=== PATIENT | male | born 1970 | race American Indian/Alaskan Native ===

== ENCOUNTER 2022-07-01 20:38 | Emergency (ER) | payer OTHER, SELFPAY ==
--- NOTE | ~2022-07-01 | CT_ITS ---
EXAMINATION: CT abdomen pelvis wo con DATE: 07/01/2022 21:24 INDICATION: Kidney stones. TECHNIQUE: Computed tomography (CT) of the abdomen and pelvis was performed without intravenous contr ast. The dose-length product was 303.10 mGy-cm. Automated exposure control and iterative reconstructi on technique were employed. COMPARISON: CT dated 05/15/2015 FINDINGS: Heart size normal. No significant abnormality of the lung bases. No pneumothorax. No signif icant pleural or pericardial effusion. There is moderate debris in the stomach. No significant vascul ar abnormality. No lymphadenopathy. Normal appendix. There is a proximal right ureteral stone measuri ng 5 mm. There is mild right hydronephrosis. There is a 2 mm nonobstructing right renal stone. Bladde r is unremarkable. No left renal or ureteral stone. No free air or free fluid. Nonobstructive bowel p attern.There is a second bone island located in the left ischio, unchanged. Nephrolithiasis. IMPRESSION: 1. Proximal right ureteral stone measuring 5 mm located at the L3 level with mild hydronephrosis. 2: Right there is a stable sclerotic lesion of the left ilium, consistent with a bone island. Reviewed, dictated and finalized at location A. [employer] IMPRESSION: 1. Proximal right ureteral stone measuring 5 mm located at the L3 level with mi ld hydronephrosis. 2: Right there is a stable sclerotic lesion of the left ilium, consistent with a bone island.
[2022-07-01 21:08] VITALS: BP 136/88; PULSE 72; RESP 16; TEMP 37; O2SAT 100
[2022-07-01 21:53] LABS: Appearance Urine Clear (Clear); Bilirubin Urine Negative (Negative); Blood Urine Trace-intact (Negative); Color Urine Yellow (Yellow); Glucose Urine UA Negative (Negative); Ketones Urine Negative (Negative); Leukocyte Esterase Ur Negative LEU/UL (Negative); Nitrate Urine Negative (Negative); Protein Urine 1+ mg/dL (Negative); Specific Grav Ur >= 1.030 (1.001-1.035); Urobilinogen Urine 0.2 mg/dL (<2.0)
[2022-07-01 21:54] LABS: Basophils Percent Auto 0.3 % (0.2-1.2); Eosinophils Percent Auto 0.1 % (0-4.4); Hematocrit 48.4 % (42.0-52.0); Hemoglobin 16.2 g/dL (14.0-18.0); Immature Granulocyte Absolute 0.03 K/mm3 (0.00-0.031); Immature Granulocyte Percent A 0.3 % (0-0.5); Lymphocytes Absolute Auto 2.01 K/mm3 (0.9-3.2); Lymphocytes Percent Auto 18.3 % (18.3-44.2); Mean Corpuscular HGB Conc 33.5 g/dl (32-36); Mean Corpuscular Hemoglobin 28.9 pg (26-34); Mean Corpuscular Volume 86.3 fl (80-100); Mean Platelet Volume 8.9 fl (7.4-10.4); Monocytes Absolute Auto 0.4 K/mm3 (0.1-0.6); Monocytes Percent Auto 3.8 % (2.6-8.5); Neutrophils Absolute Auto 8.5 K/mm3 (1.3-6.7); Neutrophils Percent Auto 77.2 % (45.5-73.1); Platelet Count Result 253 k/mm3 (150-375); Red Blood Count 5.61 M/mm3 (4.6-6.20); Red Cell Distribution Width 14.2 % (11.5-14.5)
[2022-07-01 21:57] LABS: Mucus Urine Heavy /lpf; RBC Urine 21-50 /hpf (0-2); Squamous Epithelial Cell Urine Rare /hpf (Few); WBC Urine 0-3 /hpf
[2022-07-01 21:58] LABS: Add Urine Microscopic? YES
--- NOTE | 2022-07-01 22:04 | ED.ABDPAIN ---
HPI - Abdominal Pain General Chief Complaint: Abdominal Pain Stated Complaint: kidney stone Time Seen by Provider: 07/01/22 21:54 History of Present Illness HPI narrative: 51-year-old history of previous kidney stones presented with right flank pain. Per patient, he was in his usual state of health until this morning around 6 in the morning when he began feeling colicky right flank pain rating down to his groin. He reports that is similar to his previous kidney stones. He denies hematuria, seeing a stone in his urine. He reports associated nausea. He denied vomiting, fevers, chills, abdominal pain, chest pain, shortness of breath, dysuria, diarrhea. He is having regular bowel movements and flatus. He has not tried anything for the pain. Related Data Home Medications Medication Instructions Recorded Confirmed atorvastatin 40 mg tablet mg 07/01/22 07/01/22 Allergies Allergy/AdvReac Type Severity Reaction Status Date / Time No Known Allergies Allergy Verified 07/01/22 20:40 Exam Narrative: APPEARANCE: Alert, calm and cooperative, phonating, unseasy, rocking in bed in apparent pain HEAD: atraumatic EYES: Pupils equal round an reactive to light, extra ocular movements intact, no conjunctival injection NOSE: Normal no drainage NECK: Supple, without meningismus RESPIRATORY: Lungs clear to auscultation bilaterally, no wheezes/rales/rhonchi, breathing comfortably CARDIOVASCULAR: Regular rate and rhythm, no visible jugular venous distension ABDOMINAL: Soft, nontender, no mcburneys' point tenderness, nondistended, no guarding, no rebound/peritoneal signs, no costovertebral tenderness to palpation BACK: no midline tenderness to palpation, no step offs EXTREMITIES: No edema, palpable peripheral pulses, warm, well perfused, no tenderness to bilateral calves. NEURO: Alert, moving all extremities symmetrically, ambulating with steady gait SKIN:: Warm, dry. Normal color PSYCHIATRIC: Normal affect/mood Course Reevaluation(s) Reevaluation #1: Patient reassessed after Toradol and IV fluids, with significant improvement of symptoms. Vitals reviewed. Blood work reviewed, notable for hematuria. CT abdomen pelvis reviewed, notable for nephrolithiasis without other causes of intra abdominal pathology. History and exam suggestive of recurrent nephrolithiasis without evidence of infection. Patient has close primary care follow-up to discuss recurrence nephrolithiasis. Physical exam benign, abdomen soft, vitals stable. The patient tolerated oral intake, is alert and oriented, speaking with clear speech, ambulated with steady gait, and has remained hemodynamically stable throughout the ED visit. He has close follow up with his primary care provider. Areas of diagnostic uncertainty discussed and strict return precautions shared with patient; encouraged to return to the emergency department if symptoms returned or worsened. The patient is safe to be discharged with follow up, provided he abide by the verbalized and written instruction, to which the patient has express understanding. Vital Signs Vital signs: Vital Signs Temperature 98.6 F 07/01/22 21:08 Pulse Rate 72 07/01/22 21:08 Respiratory Rate 16 07/01/22 21:08 Blood Pressure 136/88 07/01/22 21:08 Pulse Oximetry 100 07/01/22 21:08 Temperature 98.6 F 07/01/22 21:08 Pulse Rate 72 07/01/22 21:08 Respiratory Rate 16 07/01/22 21:08 Blood Pressure 136/88 07/01/22 21:08 Pulse Oximetry 100 07/01/22 21:08 MDM - Abdominal Pain MDM Narrative Medical decision making narrative: 51-year-old male history of kidney stone presented with acute onset right flank and right groin pain similar to his previous kidney stone. Vitals reviewed. Physical exam benign, abdomen benign, vital stable. CT abdomen pelvis notable for right renal stone with mild hydronephrosis, without other intra-abdominal acute pathology. Impression: History and exam suggestive of right-sided n
[2022-07-01 22:06] LABS: Alanine Aminotransferase 97 U/L (6-50); Albumin Level 4.9 g/dL (3.5-5.1); Alkaline Phosphatase 83 U/L (38-126); Anion Gap 12 mmol/L (8-16); Aspartate Amino Transferase 47 U/L (17-59); Bilirubin,Total 1.7 mg/dL (0.2-1.3); Blood Urea Nitrogen 18 mg/dL (9-20); Calcium 9.5 mg/dL (8.4-10.2); Carbon Dioxide 29 mmol/L (22-30); Chloride 102 mmol/L (98-107); Estimated CRCL calculation 51 ml/min; Estimated Glomerular Filt Rate 58; Glucose 149 mg/dL (65-110); Potassium 4.5 mmol/L (3.4-5.0); Sodium 143 mmol/L (137-145)
[2022-07-01] MEDS: SODIUM CHLORIDE 0.9% IV 1,000 ML 999 ML IV CONT (22:13)
[2022-07-01] MEDS: KETOROLAC 30 MG/ML VIAL (*BKC) IV PUSH (22:13)
== END 2022-07-01 23:41 | disposition home or self-care (01) ==
PROVIDERS: Emergency Medicine; Emergency Provider Emergency Medicine; PCP Family Medicine
DX: N13.2 Hydronephrosis with renal and ureteral calculous obstruction (principal); Z87.442 Personal history of urinary calculi; M89.9 Disorder of bone, unspecified
CPT/HCPCS: 36415; 74176; 80053; 81001; 85025; 96361; 96374; 99284; J1885; J7030

== ENCOUNTER 2023-11-22 13:48 | Outpatient (CLI) | payer BC, SELFPAY ==
--- NOTE | ~2023-11-22 | XR_ITS ---
XR abdomen/kub 1V 11/22/2023 14:06 INDICATION: Renal stone TECHNIQUE: KUB COMPARISON: CT dated 07/01/2022 FINDINGS: Bowel gas pattern is normal. There is no evidence of free air, mass, organomegaly, ascites or obstruction. No abnormal calculi are seen. The bones appear intact. IMPRESSION: 1: No acute abdominal abnormality identified. Reviewed, dictated and finalized at location B.
== END 2023-11-22 13:49 | disposition home or self-care (01) ==
PROVIDERS: PCP Family Medicine; Visit Provider Urology
DX: N20.0 Calculus of kidney (principal)
CPT/HCPCS: 74018